=== PATIENT | female | born 1955 | race Caucasian/White ===

== ENCOUNTER → 2017-12-07 09:20 | Outpatient (CLI) | payer OTHER, SELFPAY ==
--- NOTE | 2017-12-07 09:23 | MM_ITS ---
. MM Dig screening mamm BI w/CAD CAD Screening ORDERING PHYSICIAN : Dilip Leos MD PATIENT AGE: 62 years GENDER: Female COMPARISON: Previous mammograms: June 2013, 2013, July &. December 2011. INDICATION: Takes estrogen. No new complaints. Noncontributory family history. TECHNIQUE: Standard CC and MLO images were obtained. R2 CAD reviewed. FINDINGS: Moderate breast density. Scattered [id number] from bladder elements bilaterally RIGHT BREAST:No significant new areas of concern Small area of nodularity at the medial retroareolar region is unchanged since 2011. Can be followed. Minimal area of density towards the deep lateral right breast on cc view is similar to 2010 exam. There are 2 MLO views today which are helpful and show no additional densities at the deep right breast LEFT BREAST no significant change:Stable architecture and appearance follow-up in one year adequate ======IMPRESSION: Stable bilateral mammogram. No significant appearing new findings either breast . Bilateral follow-up one year BI-RADS Category: 2 Benign Finding(s) RECOMMENDED FOLLOW-UP: 1YR - 1 YEAR FOLLOW-UP (A letter has been sent to the patient regarding results of the study.)
== END ==
PROVIDERS: Family Provider Internal Medicine; PCP Internal Medicine; Visit Provider Obstetrics & Gynecology
DX: Z12.31 Encounter for screening mammogram for malignant neoplasm of breast (principal)
CPT/HCPCS: 77067

== ENCOUNTER → 2018-12-12 08:50 | Outpatient (CLI) | payer OTHER, SELFPAY ==
--- NOTE | 2018-12-12 08:52 | FL_ITS ---
FL barium enema w air contrast lesion or abnormality. The left colon appears satisfactory. Ordering Physician: Juan Nolen MD Patient Age: 63 years: Female HISTORY: ITS.REASON: history of polyps / tortuosity COMPARISON :None TECHNIQUE: Air-contrast barium enema 11Minutes 24 seconds fluoroscopy AIR-CONTRAST BARIUM ENEMA . Technical aspects: Unusually difficult barium enema.. We had difficulty with barium flowing freely into and through the colon & particular difficulty in filling the right colon. Reason for such is still somewhat unclear and possibly related to the barium set up as well as the patient's somewhat tortuous colon along with some mild spasm.. I would note the patient lost the tip during the prolonged study and barium tip was reinserted. I also added water to dilute the thick barium, & increase the pressure head, but still barium would not flow freely. ,. We did encounter some resistance from areas of [id number] transit spasm encountered at sigmoid and left colon., But Suspect there may have been likely some variations in the barium delivery system which added to difficulty as well.... In either case the patient was very uncomfortable towards the end of the study while we were still attempting to fill the right colon thusended exam, and opted to pursue cecum imaging on postevacuation views. .--- Rectum. Unremarkable. Sigmoid: mild to moderate irritability sigmoid colon with a few developing very small and tiny diverticula. No persistent or fixed lesion at the sigmoid:. Descending colon is well visualized with with no lesions.... Splenic flexure & transverse colon appear satisfactory. Hepatic flexure and cecum are less well visualized.. After postevacuation, we were able to direct some minimal barium towards the prominent cecum and under fluoroscopy to direct the barium and did evaluate this region. Faint Minimal coating about margin of the cecum. With these images under fluoroscopy I see no no prominent mass or lesion at this cecum. Nor adjacent proximal right colon. No gross findings at the cecum. It however is not optimally evaluated. Also on the postevacuation images there is a curious appearing, possible smooth filling defect along the at the superior margin of hepatic flexure which the time of fluoroscopy attributed gas collection however it is seen on several other images.. It was Not consistently seen on earlier images & conceivably could be due to incomplete coating of the bowel in this region course along with some longitudinal contour variations. However because of this latter feature, along with the lack of optimal visualization the cecum/right colon, I believe follow-up CT colonoscopy would be warranted to further evaluate this patient..... Also note The technologist did not include standard Decubitus images as per protocol which may been helpful.. And also RPO view is not optimal as the patient may have lost air-fluid distal colon The other alternative is a follow-up full column barium enema within the next 3 months--although polyps are not as well visualized with this technique , therefore overall in this case I believe CT colonoscopy would be best option.. However We do not offer that procedure at our facility .========= IMPRESSION ===== 1. Left colon was well-visualized as well as transverse colon up to the hepatic flexure with no significant lesions.,... But we had difficulty in filling the right colon. Thus Evaluation of the cecum and right colon suboptimal.. Unusually difficult barium enema as noted in body of report. .... Sigmoid colon. Mild/moderate spasm & irritability irritability, with few developing small diverticula. ... Descending colon: mild spasm and irritability ... No lesions nor polyps are seen at the well-visualized rectum
== END ==
PROVIDERS: PCP Internal Medicine; Visit Provider Surgery
DX: Q43.8 Other specified congenital malformations of intestine (principal); Z86.010 Personal history of colon polyps
CPT/HCPCS: 74280

== ENCOUNTER → 2019-01-22 09:52 | Outpatient (CLI) | payer OTHER, SELFPAY ==
--- NOTE | 2019-01-22 09:54 | XR_ITS ---
XR DEXA axial skeleton HISTORY: ITS.REASON: screening ORDERING PHYSICIAN: Dilip Leos MD PATIENT AGE: 63 years COMPARISON: 11/21/2016 FINDINGS: The BMD measured at the Left femoral neck is 0.874 g/cm squared with a T score of -1.2. This is considered Osteopenic according to the World Health Organization criteria. Fracture risk is Moderate. Treatment is advised. L1 L4 density has a T score of 0.6 and has increased by 4%. Left hip density has increased by 1.4%. IMPRESSION: Osteopenia with moderate fracture risk. Treatment is advised. Suggest follow-up exam January 2021
--- NOTE | 2019-01-22 09:54 | MM_ITS ---
MM Dig screening mamm BI w/CAD ORDERING PHYSICIAN : Dilip Leos MD PATIENT AGE: 63 years GENDER: Female COMPARISON: November 20172016, July 2015, June 2014 INDICATION: ITS.Routine screening mammogram. Takes estrogen.. No new complaints. Noncontributory family history. TECHNIQUE: Standard CC and MLO images were obtained. R2 CAD reviewed. FINDINGS . scattered fibroglandular elements throughout both breasts. Most notable at the retroareolar region and extending towards upper-outer quadrant. Moderate density breast with mild asymmetry RIGHT BREAST: Area of very slight area of increased density at lateral retroareolar region labeled A-most likely reflects summation shadow. However would suggest a compression spot views at this area A for further evaluation, particularly with noting patient is on estrogen. These should include CC and MLO and 90 degree spot views.Ultrasound suggested as well Stable Area labeled B reflects a small long-standing stable nodule Unchanged since last year and present since at least 2013 and #2012 and. This can be followed LEFT BREAST: Stable appearance left breast. No new areas of significant concern ...... IMPRESSION: ......... Right Breast: Slight increased density in the lateral retroareolar region, most likely reflecting summation shadow. Although I doubt is of significance, would suggest additional spot views to further evaluate area labeled A. . Ultrasound suggested as well to further evaluate a and B . Stable small nodular density labeled B at medial/superior retroareolar region. Stable feature. Not of concern. Left Breast: . No new areas of concern. Follow-up screening mammogram 1 year on left BI-RADS Category: 0 Need Additional Imaging Evaluation RECOMMENDED FOLLOW-UP: IMM - IMMEDIATE FOLLOW-UP RECOMMENDED Right breast: Spot views and ultrasound recommended at patient's convenience (A letter has been sent to the patient regarding results of the study.)
== END ==
PROVIDERS: PCP Internal Medicine; Visit Provider Obstetrics & Gynecology
DX: Z12.31 Encounter for screening mammogram for malignant neoplasm of breast (principal); Z78.0 Asymptomatic menopausal state
CPT/HCPCS: 77067; 77080

== ENCOUNTER → 2019-02-07 12:54 | Outpatient (CLI) | payer OTHER, SELFPAY ==
--- NOTE | 2019-02-07 12:56 | MM_ITS ---
MM Dig mamm DX unilat RT CAD COMPARISON: Digital mammograms with CAD 01/22/2019 INDICATION: Nodular lesion deep to the nipple right breast in addition to a area of possible architectural distortion versus summation shadow TECHNIQUE: Spot compression MLO and CC views and 90 degrees lateral view FINDINGS: The possible area of the architectural distortion appears to compress out no definite suspicious lesion seen. The other nodular lesion labeled B on the recent mammogram is still present on the additional views. Ultrasound performed the same date showed the lesion compatible with fibroadenoma corresponding in size and location to this density. IMPRESSION: No new area of architectural distortion, stable benign-appearing nodular density likely due to a fibroadenoma as evaluated with ultrasound. BI-RADS Category: 2 Benign Finding(s) RECOMMENDED FOLLOW-UP: 1YR - 1 YEAR FOLLOW-UP (A letter has been sent to the patient regarding results of the study.)
--- NOTE | 2019-02-07 13:53 | US_ITS ---
US breast RT complete COMPARISON: Screening bilateral mammograms 01/22/2019 and additional views right breast 02/07/2019 HISTORY: Possible new density subareolar region versus summation shadow TECHNIQUE: Targeted ultrasound circumareolar region FINDINGS: There is a well-defined hypoechoic lesion at the 12:00 position near the nipple measuring 0.5 x 0.8 x 0.4 cm and this lesion shows faint homogeneous internal echoes. The appearance is most suggestive of a the surrounding breast parenchyma shows mildly and diffusely heterogenic echogenicity with no suspicious lesion seen. Fibroadenoma. IMPRESSION: Hypoechoic benign-appearing nodular density corresponding in size and location to the nodule described on the screening mammogram and this apparently has been stable for several years and is likely a small fibroadenoma.
== END ==
PROVIDERS: PCP Internal Medicine; Visit Provider Obstetrics & Gynecology
DX: R92.8 Other abnormal and inconclusive findings on diagnostic imaging of breast (principal)
CPT/HCPCS: 76641; 77065

== ENCOUNTER → 2019-06-14 10:54 | Outpatient (CLI) | payer OTHER, SELFPAY ==
--- NOTE | 2019-06-14 10:56 | US_ITS ---
PROCEDURE: US THYROID CLINICAL INDICATION: GOITER COMPARISON: No exams were available for comparison FINDINGS: Right lobe: Measures 1.5 by 4.5 x 1.3 centimeters. There are a few small hypoechoic and anechoic nodules in the right lobe, the largest at the anterior upper pole is 6.0 millimeters. Left lobe: Measures 1.1 by 4.5 x 1.1 centimeters. There are a few small anechoic foci, the largest in the lower pole is 6.6 millimeters. Isthmus: 3.7 millimeters. Additional findings: The echogenic texture of the thyroid gland is normal. IMPRESSION: Bilateral small benign-appearing nodules. There is no suspicious nodule. Dictated by: Luca Montelongo 06/14/2019 13:16 Electronically signed by Luca Montelongo in [facility] 06/14/2019 13:16
== END ==
PROVIDERS: PCP Internal Medicine; Visit Provider Internal Medicine
DX: E04.9 Nontoxic goiter, unspecified (principal)
CPT/HCPCS: 76536

== ENCOUNTER → 2020-12-17 08:52 | Outpatient (CLI) | payer MEDICARE, OTHER, SELFPAY ==
--- NOTE | 2020-12-17 08:56 | MM_ITS ---
PROCEDURE: MM DIG SCREENING MAMM BI W/CAD Digital Breast Tomosynthesis Included CLINICAL INDICATION: screening There is no personal or family history of breast cancer. The patient currently is on estrogen. COMPARISON: MG SCBI MM Dig screening mamm BI w/CAD from 12/07/2017 MG DIG MAMM-SCREEN JUANJO from 01/22/2019 MG DIG MAMM-DX UNI-RT from 02/07/2019 TECHNIQUE: Standard CC and MLO images and 3D Tomosynthesis was obtained. R2 CAD reviewed. FINDINGS: Mild to moderate scattered fibroglandular densities are seen breasts. There is faint arterial calcification right breast. There are few benign-appearing microcalcifications right breast. There is a stable benign-appearing nodular density just deep to the nipple right breast unchanged in size and appearance mammograms 12/07/2017. No new or suspicious lesion in either breast and no suspicious microcalcifications. IMPRESSION: Mild to moderate breast density no suspicious lesions seen BI-RAD Category: 2 Benign Finding(s) FOLLOW-UP: 1YR 1 Year Follow-up (A letter has been sent to the patient regarding results of the study.) Dictated by: Dr. Kunal Serna MD 12/18/2020 11:44 Dr. Kunal Serna MD in [place] 12/18/2020 11:44
== END ==
PROVIDERS: PCP Internal Medicine; Visit Provider Obstetrics & Gynecology
DX: Z12.31 Encounter for screening mammogram for malignant neoplasm of breast (principal)
CPT/HCPCS: 77063; 77067

== ENCOUNTER → 2021-11-23 13:15 | Outpatient (CLI) | payer MEDICARE, OTHER, SELFPAY ==
[2021-11-23 16:56] LABS: Alanine Aminotransferase 25 U/L (12-78); Albumin Level 4.4 g/dl (3.5-5.0); Albumin/Globulin Ratio 1.9 (1.1-1.8); Alkaline Phosphatase 56 U/L (38-126); Anion Gap 12.9 mEq/L (5-15); Aspartate Amino Transferase 27 U/L (14-36); Bilirubin,Total 2.1 mg/dl (0.2-1.3); Blood Urea Nitrogen 15 mg/dl (7-17); Calcium 9.3 mg/dl (8.4-10.2); Carbon Dioxide 27 mmol/L (22.0-30.0); Chloride 100 mmol/L (98-107); Chol/HDL Ratio 2.8 (1-3.5); Cholesterol 220 mg/dl (140-200); Estimated Glomerular Filt Rate 100 ml/min (>60); GFR (African American) 121 ML/MIN (>60); Globulin 2.3 g/dL (1.3-3.2); Glucose 103 mg/dl (74-100); HDL Cholesterol 79 mg/dl (40-60); Potassium 3.9 mmoL/L (3.5-5.1); Sodium 136 mmol/L (136-145); Total Protein,Serum 6.7 g/dl (6.3-8.2); Triglycerides 217 mg/dl (30-150); VLDL Cholesterol 43 mg/dL (0-40)
[2021-11-23 17:14] LABS: Direct LDL Cholesterol 102.08 mg/dL (100-129)
== END ==
PROVIDERS: Visit Provider Internal Medicine
DX: I10 Essential (primary) hypertension (principal); E78.5 Hyperlipidemia, unspecified; N95.1 Menopausal and female climacteric states
CPT/HCPCS: 80053; 80061

== ENCOUNTER → 2022-06-21 10:53 | Outpatient (CLI) | payer MEDICARE, OTHER, SELFPAY ==
--- NOTE | 2022-06-21 10:56 | MM_ITS ---
PROCEDURE INFORMATION: Exam: MG Bilateral Screening 3D Mammography Exam date and time: 06/21/2022 10:50 AM Age: 66 years old Clinical indication: Screening examination TECHNIQUE: Imaging protocol: Bilateral Screening tomosynthesis and 2D mammography including computer-aided detection (CAD) when performed. COMPARISON: 1. MG MM DIG SCREENING MAMM BI W/CAD 12/17/2020 9:04 AM 2. MG DIG MAMM-DX UNI-RT 02/07/2019 1:20 PM FINDINGS: MAMMOGRAPHY: Breast composition: There are scattered areas of fibroglandular density. Mass: None. Architectural distortion: None. Calcifications: No suspicious calcifications. Asymmetric density: None. Skin thickening: None. Axillary adenopathy: None. IMPRESSION: No mammographic evidence of malignancy. Annual screening is recommended unless otherwise clinically indicated. ASSESSMENT: BI-RADS Category 1: Negative
== END ==
PROVIDERS: PCP Internal Medicine; Visit Provider Internal Medicine
DX: Z12.31 Encounter for screening mammogram for malignant neoplasm of breast (principal)
CPT/HCPCS: 77063; 77067

== ENCOUNTER → 2023-03-03 13:09 | Outpatient (CLI) | payer MEDICARE, OTHER, SELFPAY ==
[2023-03-03 14:50] LABS: Basophils % 0.9 % (0.1-2.0); Eosinophils # 0.4 K/mm3 (0.0-0.4); Eosinophils % 7.8 % (0.1-12.0); Hematocrit 42.3 % (37.0-47.0); Hemoglobin 14.1 g/dL (12.2-16.2); Lymphocytes # 1.6 K/mm3 (0.7-4.5); Lymphocytes % 33.2 % (10-50); Mean Corpuscular HGB Conc 33.4 g/dL (31.8-35.4); Mean Corpuscular Hemoglobin 28.2 pg (27.0-31.2); Mean Corpuscular Volume 84.3 fl (81-99); Mean Platelet Volume 8.5 fl (7.4-10.4); Monocytes # 0.3 K/mm3 (0.1-1.0); Monocytes % 6.5 % (1.7-9.3); Neutrophils # 2.5 K/mm3 (1.8-7.8); Neutrophils % 51.6 % (37.0-80.0); Platelet Count 259 K/mm3 (142-424); Red Blood Count 5.01 M/mm3 (4.20-5.40); Red Cell Distribution Width 13.1 % (11.5-17.5); White Blood Count 4.8 K/mm3 (4.8-10.8)
[2023-03-03 15:21] LABS: Alanine Aminotransferase 27 U/L (12-78); Albumin Level 4.3 g/dl (3.5-5.0); Albumin/Globulin Ratio 1.7 (1.1-1.8); Alkaline Phosphatase 71 U/L (38-126); Anion Gap 15.1 mEq/L (5-15); Aspartate Amino Transferase 31 U/L (14-36); Bilirubin,Total 2.1 mg/dl (0.2-1.3); Blood Urea Nitrogen 20 mg/dl (7-17); Calcium 9.2 mg/dl (8.4-10.2); Carbon Dioxide 29 mmol/L (22.0-30.0); Chloride 99 mmol/L (98-107); Chol/HDL Ratio 2.7 (1-3.5); Cholesterol 199 mg/dl (140-200); Estimated Glomerular Filt Rate 99 ml/min (>60); GFR (African American) 120 ML/MIN (>60); Globulin 2.5 g/dL (1.3-3.2); Glucose 104 mg/dl (74-100); HDL Cholesterol 73 mg/dl (40-60); Potassium 4.1 mmoL/L (3.5-5.1); Sodium 139 mmol/L (136-145); Total Protein,Serum 6.8 g/dl (6.3-8.2); Triglycerides 171 mg/dl (30-150); VLDL Cholesterol 34 mg/dL (0-40)
[2023-03-03 15:31] LABS: Direct LDL Cholesterol 93.98 mg/dL (100-129)
[2023-03-03 15:52] LABS: Thyroid Stimulating Hormone 1.73 uIU/mL (0.465-4.68)
== END ==
PROVIDERS: PCP Internal Medicine; Visit Provider Internal Medicine
DX: I10 Essential (primary) hypertension (principal); E78.5 Hyperlipidemia, unspecified; E04.9 Nontoxic goiter, unspecified; Z96.641 Presence of right artificial hip joint
CPT/HCPCS: 80053; 80061; 84443; 85025

== ENCOUNTER → 2023-03-07 15:16 | Outpatient (CLI) | payer MEDICARE, OTHER, SELFPAY ==
[2023-03-07 16:56] LABS: Bilirubin,Total 1.7 mg/dl (0.2-1.3)
== END ==
PROVIDERS: PCP Internal Medicine; Visit Provider Internal Medicine
DX: R79.9 Abnormal finding of blood chemistry, unspecified (principal); E80.7 Disorder of bilirubin metabolism, unspecified
CPT/HCPCS: 82247

== ENCOUNTER → 2023-03-15 13:30 | Outpatient (CLI) | payer MEDICARE, OTHER, SELFPAY ==
[2023-03-15 14:08] LABS: Reticulocyte % (Auto) 1.6 % (0.9-3.2)
[2023-03-17 14:28] LABS: Haptoglobin 136 mg/dL (37-355)
== END ==
PROVIDERS: PCP Internal Medicine; Visit Provider Internal Medicine
DX: E80.7 Disorder of bilirubin metabolism, unspecified (principal)
CPT/HCPCS: 83010; 85044

== ENCOUNTER → 2023-03-20 11:59 | Outpatient (CLI) | payer MEDICARE, OTHER, SELFPAY ==
[2023-03-20 12:14] LABS: Microscopic, Urine URINE MICROSCOPIC (MICROSCOPIC)
[2023-03-20 13:16] LABS: Appearance,Urine CLEAR (Clear); Bilirubin,Urine Negative (Negative); Blood, Urine Negative (Negative); Color,Urine YELLOW (Yellow); Glucose,Urine (UA) Negative (Negative); Ketones,Urine Negative (Negative); Leukocyte Esterase,Urine Negative (Negative); Nitrate,Urine Negative (Negative); PH,Urine 5.5 (5.0-8.5); Protein,Urine Negative (Negative); Urobilinogen,Urine 0.2 EU/dl (0.2)
[2023-03-20 14:07] LABS: Bacteria,Urine Trace /lpf; Squamous Epithelial Cell,Urine Occasional #/hpf (0-5)
[2023-03-20 23:09] LABS: Bilirubin,Direct 0.3 mg/dl (0.0-0.4); Bilirubin,Total 1.4 mg/dl (0.2-1.3)
== END ==
PROVIDERS: PCP Internal Medicine; Visit Provider Internal Medicine
DX: E80.7 Disorder of bilirubin metabolism, unspecified (principal)
CPT/HCPCS: 36415; 81001; 82247; 82248

== ENCOUNTER → 2023-03-31 07:46 | Outpatient (CLI) | payer MEDICARE, OTHER, SELFPAY ==
--- NOTE | 2023-03-31 07:52 | US_ITS ---
FINAL REPORT TECHNIQUE: Sonographic images of the right upper quadrant were obtained. CLINICAL HISTORY: ABNORMAL TEST RESULTS COMPARISON: None FINDINGS: PANCREAS: Unremarkable. LIVER: There is diffuse increased echogenicity consistent with fatty infiltration of the liver. No focal hepatic lesion. No intrahepatic biliary ductal dilatation. GALLBLADDER: No gallstones. No gallbladder wall thickening or pericholecystic fluid. COMMON DUCT: 2.5 mm. Normal for age. RIGHT KIDNEY: The right kidney measures 9.9 cm. There is no hydronephrosis, mass, or stone. FREE FLUID: None. IMPRESSION: Unremarkable ultrasound of the right upper quadrant. Reviewed, Interpreted and Dictated by Rose Guillen MD Transcribed by Rosa Maria Cuenca Authenticated and [facility]
== END ==
PROVIDERS: PCP Internal Medicine; Visit Provider Internal Medicine
DX: R17 Unspecified jaundice (principal)
CPT/HCPCS: 76705

== ENCOUNTER → 2023-07-11 14:50 | Outpatient (CLI) | payer MEDICARE, OTHER, SELFPAY ==
--- NOTE | 2023-07-11 14:54 | MM_ITS ---
PROCEDURE INFORMATION: Exam: MG Bilateral Screening 3D Mammography Exam date and time: 07/11/2023 2:53 PM Age: 67 years old Clinical indication: Screening examination; No personal or family history of breast cancer TECHNIQUE: Imaging protocol: Bilateral Screening tomosynthesis and 2D mammography including computer-aided detection (CAD) when performed. COMPARISON: 1. MG MM DIG SCREENING MAMM BI W/CAD 06/21/2022 10:50 AM 2. MG MM DIG SCREENING MAMM BI W/CAD 12/17/2020 9:04 AM 3. MG DIG MAMM-DX UNI-RT 02/07/2019 1:20 PM FINDINGS: MAMMOGRAPHY: Breast composition: The breasts are heterogeneously dense, which may obscure small masses. Mass: No suspicious masses. Architectural distortion: No suspicious distortion. Calcifications: No suspicious calcifications. Asymmetric density: None. Skin thickening: None. Axillary adenopathy: None. IMPRESSION: No mammographic evidence of malignancy. Annual screening is recommended unless otherwise clinically indicated. ASSESSMENT: BI-RADS Category 1: Negative
== END ==
PROVIDERS: PCP Internal Medicine; Visit Provider Internal Medicine
DX: Z12.31 Encounter for screening mammogram for malignant neoplasm of breast (principal)
CPT/HCPCS: 77063; 77067

== ENCOUNTER 2023-12-05 09:59 | Outpatient (CLI) | payer MEDICARE, OTHER, SELFPAY ==
--- NOTE | 2023-12-05 10:07 | XR_ITS ---
FINAL REPORT CLINICAL HISTORY: RT KNEE PAIN; DJD FINDINGS: Right knee Three views were obtained. There is no acute fracture or dislocation. There is advanced medial compartment joint space narrowing with subchondral sclerosis and osteophyte formation. There is moderate osteophyte formation along the undersurface of the patella. No soft tissue abnormality is identified. IMPRESSION: Advanced changes of osteoarthritis of the medial compartment. Reviewed, Interpreted and Dictated by Bobby Morel MD Transcribed by Tonya Russell Authenticated and [facility]
== END 2023-12-05 23:59 ==
PROVIDERS: PCP Internal Medicine; Visit Provider Internal Medicine
DX: M17.11 Unilateral primary osteoarthritis, right knee (principal)
CPT/HCPCS: 73562

== ENCOUNTER 2024-09-28 13:38 | Emergency (ER) | payer MEDICARE, OTHER, SELFPAY ==
[2024-09-28 14:00] VITALS: BP 147/88; PULSE 78; RESP 17; TEMP 36.9; O2SAT 97; BMI 33.5
--- NOTE | 2024-09-28 14:40 | EXP.UTC ---
Discharge Plan Disposition Patient Disposition: Home, Self-Care Condition: Good Prescriptions Prescriptions: New meclizine 25 mg tablet 25 mg PO BID PRN (Reason: dizziness) Qty: 30 0RF No Action estradiol 1 mg tablet 1 mg PO DAILY Qty: 90 0RF potassium chloride 10 mEq tablet extended release See Rx Instructions .ROUTE .COMPLEX Qty: 180 1RF Dose Instruction: TAKE 1 TABLET TWICE A DAY Rx Instructions: TAKE 1 TABLET TWICE A DAY rosuvastatin 20 mg tablet See Rx Instructions .ROUTE .COMPLEX Qty: 90 1RF Dose Instruction: TAKE 1 TABLET AT BEDTIME Rx Instructions: TAKE 1 TABLET AT BEDTIME lisinopril-hydrochlorothiazide 10-12.5 mg tablet See Rx Instructions .ROUTE .COMPLEX Qty: 90 1RF Dose Instruction: TAKE 1 TABLET DAILY Rx Instructions: TAKE 1 TABLET DAILY cetirizine [Zyrtec] 10 mg Tablet 10 mg PO DAILY Referrals Follow up/Referrals: Fer Hollis MD [Primary Care Provider] - See instructions Activity Restrictions/Add. Instructions Additional Instructions/Restrictions: Take medication as prescribed. May take half dose of Postassium while taking Meclizine. Do Percy maneuver. Follow up with PCP next week if symptoms have not improved Clinical Impressions Clinical Impression: Dizziness Instructions Patient Instructions: How to Perform Percy Maneuver, DI for Dizziness-Nonvertigo Print Language Print Language: Prydeinig Discharge ED Provider: Indira Campbell [facility] General Stated complaint: dizzy Mode of Arrival: Ambulatory Source of Information: Patient Limitations: No Limitations Time Seen by Provider: 09/28/24 14:39 Description of Symptoms (Recalled from Triage Doc. by RN): PATIENT C/O DIZZINESS SINCE YESTERDAY HEENT Symptoms (Recalled from RN notes): Yes Resp Symptoms (Recalled from RN notes): No Skin Symptoms (Recalled from RN notes): No MS Symptoms (Recalled from RN notes): No Functional Status (Recalled from RN notes): WNL History of Present Illness Provider Complaint: Pt reports that she awoke yesterday and was very dizzy. She states that she had some vomiting and was unable to lay flat. She states that she was better this morning but while in the bathroom sink became dizzy again with some nausea. Related Data Home Medications ?Medication ?Instructions ?Recorded ?Confirmed cetirizine 10 mg tablet (Zyrtec) 10 mg PO DAILY 09/28/24 09/28/24 Previous Rx's ?Medication ?Instructions ?Recorded estradiol 1 mg tablet 1 mg PO DAILY #90 tabs 05/04/20 potassium chloride 10 mEq See Rx Instructions .Route 05/08/24 tablet,extended release .COMPLEX #180 tabs lisinopril 10 See Rx Instructions .Route 05/20/24 mg-hydrochlorothiazide 12.5 mg .COMPLEX #90 tabs tablet rosuvastatin 20 mg tablet See Rx Instructions .Route 05/20/24 .COMPLEX #90 tabs meclizine 25 mg tablet 25 mg PO BID PRN dizziness #30 tabs 09/28/24 Allergies Allergy/AdvReac Type Severity Reaction Status Date / Time No Known Allergies Allergy Verified 12/21/23 14:50 Worker's Comp Is this a Worker's Comp case?: No [facility] Disclaimer: The information contained in this section may have been updated after the patient was seen, as this information can be updated by other users. Social History Smoking Status: Never smoker alcohol intake: never substance use type: denies use current occupational status: retired Travel in the last 8 weeks: None household members: spouse housing: house current occupational exposures/hazards: No caffeine: Yes Have you lived/traveled outside [place] in past 30 days?: No Contact w/someone who lives/traveled outside US past 30 days?: No Exposure to someone with infectious disease in past 14 days?: No Do you have a fever (greater than 100.4 F or 38 C)?: No Have you tested positive for COVID-19: No Exposed to someone with COVID-19 in past 14 days?: No Do you have a sore throat?: No Do you have a cough?: No Do you have any weakness?: No Do you have any diarrhea?: No Are you experiencing any unusual bleeding?: No Do you have any muscle aches/pain?: No Do you have any abdominal pain?: No Are you experiencing loss of taste or smell?: No ROS Obtained: Yes All systems reviewed & no additional complaints except as documented Constitutional Constitutional: Reports system reviewed and no additional complaints, except as documented Eyes Eyes: Reports system reviewed and no additional complaints, except as documented ENT Ears, Nose, Mouth, and Throat: Reports system reviewed and no additional complaints, except as documented and Reports dizziness Cardiovascular Cardiovascular: Reports system reviewed and no additional complaints, except as documented Respiratory Respiratory: Reports system reviewed and no additional complaints, except as documented Gastrointestinal Gastrointestingal: Reports system reviewed and no additional complaints, except as documented, nausea and vomiting Genitourinary Female Genitourinary: Reports system reviewed and no additional complaints, except as documented Musculoskeletal Musculoskeletal: Reports system reviewed and no additional complaints, except as documented Integumentary/Breasts Skin/Breast: Reports system reviewed and no additional complaints, except as documented Neurologic Neurologic: Reports system reviewed and no additional complaints, except as documented, Reports as per HPI and Reports dizziness Endocrine Endocrine: Reports system reviewed and no additional complaints, except as documented Hematologic/Lymphatic Henatologic/Lymphatic: Reports system reviewed and no additional complaints, except as documented Allergic/Immunologic Allergic/Immunologic: Reports system reviewed and no additional complaints, except as documented Physical Exam General General appearance: alert and in no apparent distress Head Head exam: atraumatic and normocephalic Eye Eye exam: Present normal appearance and PERRL ENT ENT exam: Present normal exam, normal oropharynx and mucous membranes moist Neck Neck exam: Present normal inspection; Absent lymphadenopathy Chest Chest inspection: Present normal inspection and symmetric chest wall rise Respiratory Respiratory exam: Present normal lung sounds bilaterally Cardiovascular Cardiovascular exam: Present regular rate, normal rhythm and normal heart sounds Abdominal Exam Abdominal exam: Present soft and normal bowel sounds Extremities Exam Extremities exam: Present normal inspection Back Exam Back exam: Present normal inspection Neurological Exam Neurological exam: Present alert, oriented X3 and normal gait Psychiatric Psychiatric exam: Present normal affect and normal mood Skin Skin exam: Present warm, dry and intact Lymphatic Lymphatic Findings: no adenopathy Medical Decision Making Medical Records Screening: Per USPSTF and CDC recommendations, given the prevalence of disease in our region, it is our hospital?s policy to screen for HIV and viral Hepatitis for all patients aged 18 and over and those with ongoing risk factors. Jere Inquiry Pt receiving controlled substance: No Jere was queried for this patient: No Vital Signs: 09/28/24 14:00 Temperature 98.4 F Temperature Source Oral Pulse Rate [Left] 78 Respiratory Rate 17 Blood Pressure [Left Arm] 147/88 H Blood Pressure Mean [Left Arm] 107 Blood Pressure Source [Left Arm] Automatic Cuff Blood Pressure Position [Left Arm] Sitting 02 Sat by Pulse Oximetry 97 Oxygen Delivery Method Room Air
[2024-09-28 15:06] VITALS: BP 147/88; PULSE 78; RESP 17; TEMP 36.9; O2SAT 97
== END 2024-09-28 15:10 | disposition home or self-care (01) ==
PROVIDERS: Emergency Provider Nurse Practitioner Family; PCP Internal Medicine
DX: R42 Dizziness and giddiness (principal)
CPT/HCPCS: 99212; G0381

== ENCOUNTER 2024-10-01 07:51 | Outpatient (CLI) | payer MEDICARE, OTHER, SELFPAY ==
--- NOTE | 2024-10-01 07:53 | MM_ITS ---
PROCEDURE INFORMATION: Exam: MG Bilateral Screening 3D Mammography Exam date and time: 10/01/2024 7:49 AM Age: 68 years old Clinical indication: Screening exam. TECHNIQUE: Imaging protocol: Bilateral Screening tomosynthesis and 2D mammography including computer-aided detection (CAD) when performed. COMPARISON: 1. MG MM DIG SCREENING MAMM BI W/CAD 07/11/2023 2:53 PM 2. MG MM DIG SCREENING MAMM BI W/CAD 06/21/2022 10:50 AM FINDINGS: MAMMOGRAPHY: Breast composition: The breasts are heterogeneously dense, which may obscure small masses. Mass: No suspicious masses. Architectural distortion: None. Calcifications: No suspicious calcifications. Asymmetric density: None. Skin thickening: None. Axillary adenopathy: None. IMPRESSION: No mammographic evidence of malignancy. Annual screening is recommended unless otherwise clinically indicated. ASSESSMENT: BI-RADS Category 1: Negative.
== END 2024-10-01 23:59 | disposition home or self-care (01) ==
LOC: RAD 07:53
PROVIDERS: PCP Internal Medicine; Visit Provider Internal Medicine
DX: Z12.31 Encounter for screening mammogram for malignant neoplasm of breast (principal)
CPT/HCPCS: 77063; 77067